=== PATIENT | male | born 1990 | race Caucasian/White ===

== ENCOUNTER 2020-05-08 07:35 | Outpatient (RCR) | payer BC, SELFPAY ==
--- NOTE | 2020-05-08 08:23 | PTOPEVAL ---
Thank you for referring Steve Walton to [facility]. Please review, sign, date and return this plan of care [facility]. I agree with and certify that the following plan of care is medically necessary. Referring Physician Date Admitting Provider: Attending Provider: PHYSICIAN NOT ON STAFF Referring Provider: *PT Outpatient Evaluation Start: 05/08/20 07:14 Freq: Status: Active Protocol: Document 05/08/20 07:14 [facility] (Rec: 05/08/20 08:02 [facility] [email or web address]) Therapy Assessment Status Assessment Status Assessment Status Evaluation Evaluation Information Problem Diagnosis R biceps tendonitis Onset 05/01/20 Additional Evaluation Detail quick dash = 22% Subjective Information patient reports he has been Query Text:As Reported By Patient/ having pain in the R shoulder Family for about a year now. he reports no injury last year. he reports he has had an MRI of the R shoulder without any positive findings to correlate his pain. he reports increased pain with sleeping on the R shoulder, and quick motions far above his head and behind his back. he reports some burning located to the R shoudler with his pain. he reports no symptoms into his hands and fingers. he reports he has a shot to the R shoulder about 3 months ( helped a bit). 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 he reports his greatest deficits are with sleep. he reports prior to a year ago, no issues. Pain Assessment Timing of Pain Assessment Timing of Pain Assessment Assessment Pain Scale Pain Scale Used Numeric (1 - 10) Self Report Pain Assessment Right Shoulder(s) Reported Pain Level 0 Pain Description Burning,Sharp Pain Frequency Chronic,Intermittent Lowest Pain Intensity 0 Greatest Pain Intensity 4 Pain Score Pain Score 0: Self Report Upper Extremity Range of Motion Scapular/ Shoulder Range of Motion Right
--- NOTE | 2020-06-07 09:13 | PTOPEVAL ---
Thank you for referring Steve Walton to [facility].? The patient is scheduled to be seen for therapy? ____x/week for ___ weeks. Please review, sign, date and return this plan of care [facility]. I agree with and certify that the following plan of care is medically necessary. Referring Physician Date Admitting Provider: Attending Provider: PHYSICIAN NOT ON STAFF Referring Provider: *PT Outpatient Evaluation Start: 05/08/20 07:14 Freq: Status: Active Protocol: Document 06/07/20 08:00 [facility] (Rec: 06/07/20 09:11 [facility] [id number]) Therapy Assessment Status Assessment Status Assessment Status Re-evaluation Evaluation Information Problem Diagnosis R biceps tendonitis Subjective Information patient reports he feels good Query Text:As Reported By Patient/ this date. he report sno Family pain at rest today. he reports he does still have pain with reaching and lifting activities far above his head and behind his back. however, he reports feeling his mobility is much improved Pain Assessment Timing of Pain Assessment Timing of Pain Assessment Assessment Pain Scale Pain Scale Used Numeric (1 - 10) Self Report Pain Assessment Right Shoulder(s) Reported Pain Level 0 Greatest Pain Intensity 4 Pain Score Pain Score 0: Self Report Upper Extremity Range of Motion Scapular/ Shoulder Range of Motion Right Shoulder Flexion - Active 160 Shoulder Flexion - Passive 165 Shoulder Medial Rotation - Active 65 Shoulder Lateral Rotation - Active 90 Upper Extremity Muscle Strength Testing General Upper Extremity Strength Gross Upper Extremity Strength Comments 4/5 R scapular MT/LT/RH strength Scapular/Shoulder Right Shoulder Flexion Strength 5 Normal Shoulder Extension Strength 5 Normal Shoulder Abduction Strength 4+ Good + Shoulder Medial Rotation Strength 5 Normal Shoulder Lateral Rotation Strength 4 Good Shoulder Strength Comments increased pain with ER and abduction mmt General Exercise General Exercises Exercise Description -prom R shoulder mobiltiy 10 Query Text:Record Sets, Reps, minutes Resistance, and Position -bird dog x10 bilat -tb blue rows low, ext, rows high x20 -tb blue er and ir x20 -flex/scapt 3lb x20 each bilat -prone row, ext, habd x20 each 3lbs -5 minutes re-evaluation Manual Th
--- NOTE | 2020-06-14 08:11 | PCPTNOTE ---
patient cancelled appt due to having to take his cat the er. LUCAS
--- NOTE | 2020-07-05 08:15 | PCPTNOTE ---
patient cancelled appt today due to work. LUCAS
== END 2020-07-19 09:25 | disposition home or self-care (01) ==
LOC: CHSPT 07:35
DX: M75.21 Bicipital tendinitis, right shoulder (principal); M75.41 Impingement syndrome of right shoulder
CPT/HCPCS: 97014; 97110; 97140; 97161; G0283

== ENCOUNTER 2021-12-06 08:47 | Outpatient (CLI) | payer BC, SELFPAY ==
--- NOTE | 2021-12-06 17:38 | WPDPFTINT ---
PFT Procedure Performed PFT Procedure Performed Spirometry with Pre/Post Bronchodilator Plethysmography (Lung Vol) Diffusing Cap (DLCO) Flow Vol Loop PFT Interpretation DOS: 12/06/2021 REQUESTING: Latrice Avalos PA-C REASON FOR TESTING: Asthma PULMONARY FUNCTION TESTS Results are reliable and reproducible. Spirometry: Pre-bronchodilator FEV1 is 84% predicted, normal, 4.10 L. FVC is 100% predicted. The FEV1/FVC ratio is decrased. The POS08-15% is decreased at 53% predicted. After bronchodilator administration, the FEV1 increases by 14% which is greater than 200 mL. The JTC49-89% increases by 41%, and these are significant increases. Lung volumes: Total lung capacity is 101% predicted, normal. RV is 105%, normal. RV/TLC is 102%. Airways resistance is increased 392%. Diffusion: DLCO is 125%. Flow volume loop: Mild scooping of the expiratory limb. IMPRESSION: The study shows a mild obstructive ventilatory defect which is severe in the small airways, excellent response to bronchodilator, normal lung volumes and normal diffusion. This pattern is consistent with asthma. Katherin Braxton MD
== END 2021-12-06 08:48 | disposition home or self-care (01) ==
LOC: CHSCARD 08:51
PROVIDERS: PCP Family Medicine; Visit Provider Physician Assistant
DX: J45.909 Unspecified asthma, uncomplicated (principal)
CPT/HCPCS: 94060; 94726; 94729

== ENCOUNTER 2023-04-04 11:46 | Emergency (ER) | payer BC, SELFPAY ==
--- NOTE | ~2023-04-04 | XR_ITS ---
EXAMINATION: XR finger 3rd RT min 2V INDICATION: Right third finger pain TECHNIQUE: Three views of the right third finger are obtained. COMPARISON: None available FINDINGS: There is a small, oblique intra-articular fracture at the volar base of the third middle ph alanx extending to the proximal interphalangeal joint. Soft tissue swelling surrounds the fracture. N o additional fracture is identified. IMPRESSION: 1. Small volar plate avulsion fracture at the base of the third middle phalanx. Reviewed, dictated and finalized at location A.
[2023-04-04 11:54] VITALS: BP 113/68; PULSE 70; RESP 16; TEMP 36.9; O2SAT 99
--- NOTE | 2023-04-04 12:01 | ED.UPPEXIN ---
HPI - Extremity Injury (Upper) General Chief Complaint: Extremity Injury, Upper Stated Complaint: Finger Rt Hand Time Seen by Provider: 04/04/23 12:00 Source: patient Mode of arrival: ambulatory Limitations: no limitations History of Present Illness HPI narrative: Steve is a 32-year-old male patient presenting to the clinic today with complaints of right 3rd finger injury. He reports he was playing volleyball on night and the ball hit his right 3rd finger. Has swelling/bruising over the PIP joint of the right 3rd finger. Related Data Home Medications Medication Instructions Recorded Confirmed fluticasone 250 mcg-salmeterol 50 2 inh inhalation PRN PRN Shortness 04/04/23 04/04/23 mcg/dose blistr powdr for Of Breath Or Wheezing inhalation (Advair Diskus) omeprazole 40 mg capsule,delayed 40 mg PO DAILY 04/04/23 04/04/23 release Allergies Allergy/AdvReac Type Severity Reaction Status Date / Time No Known Allergies Allergy Verified 04/04/23 11:53 Review of Systems Review of Systems: Pertinent positives per HPI. Patient denies any fever, chills, rash, headache, visual changes, dizziness, cough, runny nose, sore throat, shortness of breath, chest pain, palpitations, nausea, vomiting, diarrhea, constipation, abdominal pain, or any urinary issues. PMFSH Comments At the time of my signature, I reviewed and agree with the nursing past medical, surgical, social, and family history. There is no relevant family history pertinent to the patient complaint. Exam Narrative: General: Well-developed, well nourished, in no apparent distress Head: Normocephalic, atraumatic. Cardio: Regular rate and rhythm, s1 and s2 normal, no murmur appreciated. Resp: Clear to auscultation bilaterally, no rhonchi, rales, wheezing or rubs. Musculoskeletal: No deformity, swelling and bruising noted over the PIP joint of the right 3rd finger, tender to palpation over the PIP joint, pain with flexion of the right 3rd PIP joint, grossly normal range of motion, muscle strength strong and equal, peripheral pulse strong, no cyanosis, normal gait and station Course Course Emergency Course: Portions of this record may have been created with voice recognition software. Level of Care: Express Care Visit Vital Signs Vital signs: Vital Signs Temperature 36.9 C 04/04/23 11:54 Pulse Rate 70 04/04/23 11:54 Respiratory Rate 16 04/04/23 11:54 Blood Pressure 113/68 04/04/23 11:54 Pulse Oximetry 99 04/04/23 11:54 Temperature 36.9 C 04/04/23 11:54 Pulse Rate 70 04/04/23 11:54 Respiratory Rate 16 04/04/23 11:54 Blood Pressure 113/68 04/04/23 11:54 Pulse Oximetry 99 04/04/23 11:54 Vital signs reviewed MDM - Extremity Injury (Upper) MDM Narrative Medical decision making narrative: At the time of visit patient is resting comfortably on the exam table. X-ray was performed and shows a nondisplaced small volar plate fracture of the middle phalanx/PIP joint. Metal finger splint was applied and Ortho referral was given. Supportive measures were discussed with the patient he voiced understanding discharge instructions agrees to treatment plan. Differential Diagnosis Differential diagnosis: Likely finger sprain, dislocation of finger and other (Finger fracture) Imaging Data Radiologist's impression: [place] [id number] XRay Report Signed Patient: Steve Walton : 1990 MR#: [id number] Age/Sex: 32 / M Acct:[id number] Loc: [facility]? ? ADM Date: 04/04/23Attending Dr: Ordering Physician: Godfrey Stevens APRN Date of Service: 04/04/23 Procedure(s): XR finger 3rd RT min 2V Accession Number(s): [id number] cc: Godfrey Stevens APRN; Yaya, Tim Childs MD~ EXAMINATION: XR finger 3rd RT min 2V INDICATION: Right third finger pain TECHNIQUE: Three views of the right third finger are obtained.
== END 2023-04-04 12:27 | disposition home or self-care (01) ==
PROVIDERS: Emergency Provider Nurse Practitioner Family; PCP Family Medicine
DX: S62.652A Nondisplaced fracture of middle phalanx of right middle finger, initial encounter for closed fracture (principal); W21.06XA Struck by volleyball, initial encounter; Y93.68 Activity, volleyball (beach) (court); J45.909 Unspecified asthma, uncomplicated; K21.9 Gastro-esophageal reflux disease without esophagitis
CPT/HCPCS: 29130; 73140; 99214; G0463

== ENCOUNTER 2023-11-09 09:37 | Emergency (ER) | payer BC, SELFPAY ==
--- NOTE | 2023-11-09 09:48 | ED.URI ---
HPI - URI/Sore Throat General Chief Complaint: Upper Respiratory Infection Stated Complaint: Sore Throat and Congestion Time Seen by Provider: 11/09/23 09:49 Source: patient Mode of arrival: ambulatory Limitations: no limitations History of Present Illness HPI Narrative: Steve is a 33-year-old male patient presenting to the clinic today with complaints of sore throat and nasal congestion x3 days. He reports he did an at-home COVID test on the 1st day of his symptoms and it was negative. Is concerned that he may have a sinus infection. States that he has been having a productive cough with some yellow phlegm. History of asthma. Denies any current shortness of breath or chest pain MD elicited complaint: sore throat and nasal congestion Related Data Home Medications Medication Instructions Recorded Confirmed omeprazole 40 mg capsule,delayed 40 mg PO DAILY 04/04/23 11/09/23 release cholecalciferol (vitamin D3) 50 50 mcg PO DAILY 10/09/23 11/09/23 mcg (2,000 unit) capsule fluticasone 250 mcg-salmeterol 50 1 inh inhalation BID 10/09/23 11/09/23 mcg/dose blistr powdr for inhalation (Advair Diskus) magnesium 250 mg tablet 250 mg PO DAILY 10/09/23 11/09/23 loratadine 10 mg tablet (Claritin) 10 mg PO DAILY 11/09/23 11/09/23 Allergies Allergy/AdvReac Type Severity Reaction Status Date / Time No Known Allergies Allergy Verified 11/09/23 09:57 Review of Systems Review of Systems: Pertinent positives per HPI. Patient denies any fever, chills, rash, headache, visual changes, dizziness,shortness of breath, chest pain, palpitations, nausea, vomiting, diarrhea, constipation, abdominal pain, or any urinary issues. FOR[facility]LY [facility], [facility] Past Medical History Medical History Allergic rhinitis Asthma Encounter to establish care Fertility testing Surgical History Surgical History History of adenoidectomy History of appendectomy Family History Family History Father Asthma Mother Hypertension Heart disease Skin cancer Other Rheumatoid arthritis Social History Social History Smoking status: Never smoker Alcohol intake: never Substance use: never Substance use type: does not use Do You Feel Safe in your Home?: Yes Lack of Transportation: No Lack of Food: Never True Current Housing: I Have Housing Concerned About Future Housing: No Difficulty Paying Gas/Electric Bills: No Difficulty Paying for Meds: No Currently Unemployed: No Education: Master's Degree or Higher Difficulty w/ Childcare or Family Care: No Living arrangements: with family Occupation/Education: occupation Gender identity (if verbalized by the patient): Male Sexual Orientation (if Verbalized by the Patient): Straight or Heterosexual Spiritual care concerns: No Agree to blood products: Yes Comments At the time of my signature, I reviewed and agree with the nursing past medical, surgical, social, and family history. There is no relevant family history pertinent to the patient complaint. Exam Narrative: General: Well-developed, well nourished, in no apparent distress Head: Normocephalic, atraumatic Eyes: Pupils equally round and reactive to light bilaterally, EOM intact, sclera and conjunctive clear, no discharge, lids normal Ears: TMs intact and congested, ear canals clear, no drainage, grossly hearing normal. Nose: Nares patent, clear nasal discharge, no inflammation, no sinus tenderness. Mouth: Oral pharynx red without lesions or masses, good dentition, MMM. Postnasal drip Neck: Supple, trachea midline, no enlargement of anterior or posterior cervical nodes, no thyroid masses or goiter palpable. Cardio: Regular rate and rhythm, s1 and s2 normal, no murmur appreciated.
[2023-11-09 09:55] VITALS: BP 111/1; PULSE 95; RESP 16; TEMP 36.6; O2SAT 99
== END 2023-11-09 10:23 | disposition home or self-care (01) ==
PROVIDERS: Emergency Provider Nurse Practitioner Family; PCP Nurse Practitioner Family
DX: J06.9 Acute upper respiratory infection, unspecified (principal); J02.9 Acute pharyngitis, unspecified; Z20.822 Contact with and (suspected) exposure to COVID-19; J45.909 Unspecified asthma, uncomplicated
CPT/HCPCS: 87081; 87426; 87880; 99213; G0463

== ENCOUNTER 2024-11-14 13:32 | Outpatient (CLI) | payer BC, SELFPAY ==
--- NOTE | ~2024-11-14 | US_ITS ---
EXAM: ABDOMEN ULTRASOUND HISTORY: R17 - Unspecified jaundice COMPARISON: None FINDINGS: LIVER: The liver is coarse in echogenicity and unremarkable in size measuring 18 cm in longitudinal d imension. The portal vein is patent demonstrating hepatopedal flow. The contour of the liver is smooth. Subjective intrahepatic biliary ductal dilatation is identified with intrahepatic bile ducts measurin g up to 5 mm, which appear of normal caliber in additional views. GALLBLADDER: No stones are identified within the gallbladder, which is otherwise unremarkable. No gallbladder wall thickening or pericholecystic fluid. BILE DUCTS: Common bile duct measures 3mm. PANCREAS: Limited evaluation of the pancreas secondary to overlying bowel gas IMPRESSION: Subjective intrahepatic biliary ductal dilatation with some intrahepatic bile ducts measuring up to 5 mm which appear normal on additional views. Contrast-enhanced CT imaging is recommended of the abdomen (and pelvis) for complete evaluation. Reviewed, dictated and finalized at location A. [facility] [employer] LAW CLERK IMPRESSION: Subjective intrahepatic biliary ductal dilatation with some intrahepatic bile d ucts measuring up to 5 mm which appear normal on additional views. Contrast-enhanced CT imaging is recommended of the abdomen (and pelvis) for com plete evaluation.
== END 2024-11-14 13:33 | disposition home or self-care (01) ==
LOC: MICIMG 13:32
PROVIDERS: PCP Nurse Practitioner Family; Visit Provider Nurse Practitioner Family
DX: K83.8 Other specified diseases of biliary tract (principal); R17 Unspecified jaundice
CPT/HCPCS: 76705

== ENCOUNTER 2024-11-21 16:02 | Outpatient (CLI) | payer BC, SELFPAY ==
--- NOTE | ~2024-11-21 | CT_ITS ---
EXAMINATION: CT abdomen w con DATE: 11/21/2024 16:38 INDICATION: Unspecified jaundice TECHNIQUE: Computed tomography (CT) of the abdomen and pelvis was performed with 100 mL Omnipaque-350 intravenous contrast. Automated exposure control and iterative reconstruction technique were employe d. The dose-length product was 167.45 mGy-cm. COMPARISON: None FINDINGS: Lung bases are clear. Heart size normal. No pericardial or pleural effusion. 4 mm cyst at the dome of the liver. Liver and gallbladder are otherwise normal. No intra or extrahepatic biliary ductal dilat ion. Spleen, pancreas, bilateral adrenal glands and kidneys are normal. Visualized portions of bowels are normal with no obstruction. No pathologically enlarged abdominal lymphadenopathy. Bones are unre markable. IMPRESSION: 1. 4 mm hepatic cyst. Otherwise normal liver with no intra or extra hepatic biliary ductal dilation. Reviewed, dictated and finalized at location A. [facility] IMPRESSION: 1. 4 mm hepatic cyst. Otherwise normal liver with no intra or extra hepatic esdras iary ductal dilation.
--- OUTSIDE RECORDS SUMMARY | 2024-11-21 18:19 | XMS_ITS | Continuity of Care Document ---
Author Organization [facility] Address [address] [place] [address] [place] [id number] Phone Care Team Providers Care Cd Reactor Operator Name Role Phone Cheryle PT, MPT, Sari Unavailable Unavaila ble Procedures Procedure Date Neuromuscular Re-Ed Therapeutic Exercise Manual Therapy Neuromuscular Re-Ed Manual Therapy Neuromuscular Re-Ed Manual Therapy Therapeutic Activities Neuromuscular Re-Ed Manual Therapy Therapeutic Activities Manual Therapy Therapeutic Activities Therapeutic Exercise Neuromuscular Re-Ed Manual Therapy Neuromuscular Re-Ed Therapeutic Exercise Manual Therapy Therapeutic Activities Neuromuscular Re-Ed Manual Therapy Therapeutic Activities Neuromuscular Re-Ed Therapeutic Exercise PT Evaluation Low Complexity Therapeutic Activities Neuromuscular Re-Ed Therapeutic Exercise Progress Note Therapeutic Activities Neuromuscular Re-Ed Manual Therapy Therapeutic Exercise Therapeutic Activities Therapeutic Exercise Manual Therapy Progress Note Therapeutic Activities Neuromuscular Re-Ed Manual Therapy Therapeutic Activities Neuromuscular Re-Ed Therapeutic Exercise Manual Therapy Therapeutic Activities Therapeutic Exercise Manual Therapy PT Evaluation Low Complexity Therapeutic Activities Therapeutic Exercise Manual Therapy Advance Directives Directive Yes / No Effective Date File Name No Information Encounters Encounter Description Practice Location Reason(s) For Visit Diagnoses Date Provider Providers Copied on Encounter [facility], [place], [place], [id number], tel:[phone] [facility] No Information Cheryle Ariasaret. . [facility] [place], [id number], tel:[phone] [facility] No Information Cheryle Sari. . [facility], [place], [id number], [place] tel:[phone] [facility] No Information Cheryle Sari. . [facility], [place], [id number], [place] tel:[phone] [facility] No Information Cheryle Sari. . [facility], [place], [place], [id number], [place] tel:[phone] [facility] No Information Cheryle Sari. . [facility], [place], [place], [id number], tel:[phone] [facility] No Information Cheryle Sari. . [facility], [place], [place], [id number], [place] tel:[phone] [facility] No Information Cheryle Sari. . [facility], [place], [place], [id number], [place] tel:[phone] [facility] No Information Cheryle Sari. . [facility], [place], [place], [id number], [place] tel:[phone] [facility] No Information Cheryle Sari. . [facility], [place], [place], [id number], [place] tel:[phone] [facility] No Information Cheryle Sari. . [facility], [place], [place], [id number], [place] tel:[phone] [facility] No Information Cheryle Sari. . [facility], [place], [place], [id number], [place] tel:[phone] [place] No Information Morales Hallie. . [facility], [place], [place], [id number], [place] tel:[phone] [place] No Information Morales Hallie. . [facility], [place], [place], [id number], [place] tel:[phone] [place] No Information Morales Hallie. . [facility], [place], [place], [id number], [place] tel:[phone] [place] No Information Morales Hallie. . [facility], [place], [place], [id number], [place] tel:[phone] [place] No Information Andrew Sterling. . [facility], [address], [place], [place], [id number], [place] tel:[phone] [facility] No Information Andrew Sterling. . Family History Family Member Type Diagnosis Age At Onset No Information Payers Payer name Insurance type Covered republican ID Authorblaine floyd(s) [facility] [id number] Social History Type Description Quantity Date Captured Comments Sex Male Smoking Status No Information Chief Complaint And Reason For Visit No Information Reason For Referral Reason For Referral No Information History Of Present Illness Encounter Date Complaint History Of Prese nt Illness No Information Functional Status Date Functional Assessmen t No Information Instructions Date Instruction Additional Infor mation No Information Assessments Type Assessment Date No Information Patient Care Teams Name Effective Dates (start - stop) Status Members No Information
--- OUTSIDE RECORDS SUMMARY | 2024-11-21 18:19 | XMS_ITS | Clinical Summary ---
Author Organization [facility] Address [facility] [place] [address] Care Team Providers Care Ball Racker Name Role Phone Tim Javier MD Primary Care Provider [phone] Allergies No known active allergies Medications tamsulosin 0.4 MG Cap Take 0.4 mg by mouth nightly at bedtime. 03/09/2020 Active omeprazole 40 MG capsule Take 40 mg by mouth daily. 01/16/2020 Active albuterol sulfate HFA 108 (90 Base) MCG/ACT inhaler Inhale 2 puffs into the lungs every 6 (six) hours as needed for Wheezing. Active Active Problems Problem Noted Date Diagnosed Date Impingement syndrome of right shoulder 0 Biceps tendinitis of right upper extremity 03/12 Family History Medical History Relation Comments Hyperlipidemia Father Dementia Maternal Grandfather Hypertension Maternal Grandfather Diabetes Maternal Grandmother Hyperlipidemia Maternal Grandmother Hypertension Maternal Grandmother Cancer Mother Fibromyalgia Mother Heart Mother Hypertension Mother Cancer Paternal Grandfather Hyperlipidemia Paternal Grandfather Hypertension Paternal Grandfather Asthma Paternal Grandmother COPD Paternal Grandmother Hypertension Paternal Grandmother Asthma Sister Relation Status Comments Father Alive Maternal Grandfather Alive Maternal Grandmother Mother Alive Paternal Grandfather Paternal Grandmother Alive Sister Alive Social History Tobacco Use Types Packs/Day Years Used Date Smoking Tobacco: Never Smokeless Tobacco: Never Alcohol Use Standard Drinks/Week Comments Yes 0 (1 standard drink = 0.6 oz pur e alcohol) rarely Sex and Gender Information Value Date Recorded Sex Assigned at Not on file Legal Sex Male 4:48 PM CDT Gender Identity Not on file Sexual Orientation Not on file Last Filed Vital Signs Vital Sign Reading Time Taken Comments Blood Pressure - - Pulse - - Temperature - - Respiratory Rate - - Oxygen Saturation - - Inhaled Oxygen Concentration - - Weight 77.1 kg (170 lb) 06/22/2020 10:37 AM CDT Height 190.5 cm (6' 3 ) 06/22/2020 10:37 AM CDT Body Mass Index 21.25 06/22/2020 10:37 AM CDT Plan of Treatment Health Maintenance Due Date Last Done Comments Annual Physical 1994 Hepatitis C 2009 DTaP, Tdap and Td Vaccines (1 - Tdap) 2010 04/17/1993, 02/15/1992, 1991, Additional history exists Hepatitis B Vaccines (1 of 3 - 19+ 3-dose series) 2010 COVID-19 Vaccine ( - 2023- season) 2024 Influenza Adult (#1) 2024 HPV Vaccines Aged Out No longer eligi ble based on patient's age to complete this topic Meningococcal B Vaccine Aged Out No l onger eligible based on patient's age to complete this topic Meningococcal Vaccine Aged Out No kateryna devang eligible based on patient's age to complete this topic Pneumococcal Vaccine: Pediatrics (0 to 5 Years) and At-Risk Patients (6 to 64 Years) Aged Out No longer eligible based on patient's age to complete this topic RSV Immunizations Under 20 Months Aged Out No longer eligible based on patient's age to complete this topic Insurance [facility] Care Teams Ball Racker Relationship Specialty Start Date End Date Tim Javier MD [address] [place] [address] PCP - General FAMILY PRACTICE 11/23/19
== END 2024-11-21 16:03 | disposition home or self-care (01) ==
PROVIDERS: PCP Nurse Practitioner Family; Visit Provider Nurse Practitioner Family
DX: K76.89 Other specified diseases of liver (principal); R93.2 Abnormal findings on diagnostic imaging of liver and biliary tract
CPT/HCPCS: 74160; Q9967